=== PATIENT | female | born 1965 | race Caucasian/White ===

== ENCOUNTER 2018-09-29 12:11 | Inpatient (IN) | payer MEDICAID ==
[~2018-09-29] VITALS: Ht 157.5 cm; Wt 63.0 kg
--- NOTE | 2018-09-29 12:30 | NUR ---
PT IN ER LOBBY
[2018-09-29 12:35] VITALS: BP 111/72
--- NOTE | 2018-09-29 12:52 | NUR ---
Patient ambulated to bed 9.
[2018-09-29] MEDS ORDERED: METF1000 PO (12:59)
--- NOTE | 2018-09-29 13:00 | NUR ---
52 Y FEMALE BIB SON C/O VAGINAL ACHING PAIN 910 X 3 DAYS. PT STATES IT HURTS TO URINATE, NO VAGINAL DISCHARGE. -ITCHING. -N/V. BS 474. BED IS DOWN, LOCKED, BED RAIL X 1, ERMD NOTIFIED. HX-DM LOW BP, HIGH CHOL RX- METFORMIN
--- NOTE | 2018-09-29 14:14 | NUR ---
ER MD DR BAHENA AT BEDSIDE
--- NOTE | 2018-09-29 14:20 | NUR ---
Female Double Backer MELI MCKAY accompanied female patient for Pelvic Exam.
--- NOTE | 2018-09-29 14:38 | NUR ---
US AT BEDSIDE.
[2018-09-29 14:53] LABS: APPEARANCE,URINE CLEAR (CLEAR); BILIRUBIN,URINE NEGATIVE (NEGATIVE); BLOOD, URINE NEGATIVE (NEGATIVE); COLOR,URINE YELLOW (YELLOW); LEUKOCYTE ESTERASE ,URINE NEGATIVE (NEGATIVE); NITRITE, URINE NEGATIVE (NEGATIVE); UGLUCOSE 3+ (NEGATIVE)
--- NOTE | 2018-09-29 16:17 | NUR ---
GYNOCOLOGIST DR CHOU ON THE PHONE WITH DR BAHENA
[2018-09-29 16:48] LABS: BASOPHILS % (AUTO) 0.4 % (0.0-2.0); EOSINOPHILS # (AUTO) 0.1 K/uL (0-0.4); EOSINOPHILS % (AUTO) 1.1 % (0.0-4.0); HEMATOCRIT 38.5 % (36-48); HEMOGLOBIN 13.1 g/dL (12.0-16.0); LYMPHOCYTES # (AUTO) 2.2 K/uL (2.5-16.5); LYMPHOCYTES % (AUTO) 18.2 % (20.5-51.1); MEAN CORPUSCULAR HEMOGLOBIN 29 pg (27-31); MEAN CORPUSCULAR HGB CONC 34 g/dL (33-37); MEAN CORPUSCULAR VOLUME 84.7 fL (80-94); MONOCYTES # (AUTO) 0.7 K/uL (0.8-1.0); MONOCYTES % (AUTO) 5.9 % (1.7-9.3); NEUTROPHILS # (AUTO) 8.8 K/uL (1.8-7.7); NEUTROPHILS % (AUTO) 74.4 % (42.2-75.2); PLATELET COUNT (AUTO) 211 K/uL (140-450); RED BLOOD CELL COUNT(AUTO) 4.55 MIL/uL (4.20-5.40); RED CELL DISTRIBUTION WIDTH 12.8 % (11.6-13.7); WHITE BLOOD COUNT (AUTO) 11.8 K/uL (4.8-10.8)
[2018-09-29] MEDS ORDERED: LIDOCAINE MPF 1% 5mL VIAL ONE (16:53)
[2018-09-29 17:16] LABS: ANION GAP 13.8 (8-16); CARBON DIOXIDE 25.2 mmol/L (21-32); CREATININE 0.7 mg/dL (0.6-1.3)
[2018-09-29] MEDS ORDERED: LIDOCAINE 1% 500 MG/50 ML VIAL INJ SCH (17:25)
[2018-09-29] MEDS ORDERED: INSULIN REGULAR, HUMAN 100 UNIT/ML VIAL SUBQ ONE (17:25)
--- NOTE | 2018-09-29 17:59 | NUR ---
IND COMPLETED BY DR GARZA, Female Box Tender accompanied female patient for IND.
[2018-09-29] MEDS ORDERED: NACL 0.9% 1,000 ML IV SCH (18:58)
[2018-09-29] MEDS ORDERED: ONDANSETRON 4 MG/2 ML VIAL IM/IVP PRN (19:00)
[2018-09-29] MEDS ORDERED: KETOROLAC 15 MG/ML VIAL IVP PRN (19:00)
[2018-09-29] MEDS ORDERED: ACETAMINOPHEN 325 MG TAB PO PRN (19:00)
[2018-09-29] MEDS ORDERED: DEXTROSE 50% 50 ML SYR IVP PRN (19:00)
[2018-09-29] MEDS ORDERED: MORPHINE SULFATE 4 MG/ML SYR IVP ONE (19:20)
[2018-09-29 19:51] LABS: BARBITURATE, URINE NEG. ng/ml (NEG <=200); BENZODIAZEPINE, URINE NEG. ng/mL (NEG <=200); CANNABINOID, URINE NEG. ng/mL (NEG <=50); COCAINE, URINE NEG. ng/mL (NEG <=300); OPIATE, URINE NEG. ng/mL (NEG <=2000); PHENCYCLIDINE SCREEN,URINE NEG. ng/mL (NEG <=25)
--- NOTE | 2018-09-29 19:55 | NUR ---
Patient will be admitted to care of ROLO. Admited to [facility]. Will go to room 108B. Belongings list completed. Report to BERNICE MCKAY.
--- NOTE | 2018-09-29 19:55 | NUR ---
ADMITTED A 52 Y/O FEMALE FROM WITH CHIEF COMPLAINT OF VAGINAL PAIN VIA GURNEY. PATIENT TRANSFERRED TO BED WITH STAND BY ASSIST.RESPIRATION EVEN AND UNLABORED IN ROOM AIR. DENIES PAIN AT THIS TIME.DISCUSSED PLAN OF CARE. PATIENT ABLE TO VERBALIZED HER NEEDS AND FOLLOW COMMANDS. SKIN INTACT. MRSA NASAL SWAB DONE.PERSONAL BELONGINGS AT BEDSIDE. ADMISSION CARE DONE AND CARRY OUT ORDERS. BED IN LOW LOCKED POSITION. EXPLAINED TO USE CALL LIGHT FOR ASSISTANCE. CALL LIGHT WITHIN REACH. ALL NEEDS ATTENDED. WILL CONTINUE TO MONITOR.
[2018-09-29 19:57] LABS: MAGNESIUM 1.9 mg/dL (1.8-2.4); PHOSPHORUS 3.6 mg/dL (2.5-4.9); THYROID STIMULATING HORMONE 0.9 uIU/mL (0.34-3.74)
[2018-09-29 20:28] LABS: PROTHROMBIN TIME 8.8 secs (10.8-13.4)
[2018-09-29] MEDS ORDERED: cefTRIAXone 1,000 MG VIAL ONE (20:31)
--- NOTE | 2018-09-29 21:00 | NUR ---
DR LAND CALLED TO CHECK ON HIS CONSULT, ASKE ME TO CHECK THE CYST AND MEASURE IT, AND STATED WILL CALL BACK IN 5 MIN.
--- NOTE | 2018-09-29 21:00 | NUR ---
BS TAKEN 403. NOTIFIED DR. CASTANEDA ORDERED INSULIN 10 UNITS. EXPLAINED PATIENT ABOUT NPO POST MIDNIGHT AND VERBALIZED UNDERSTANDING. WILL CONTINUE TO MONITOR
--- NOTE | 2018-09-29 21:10 | NUR ---
DR LAND CALLED BACK GIVE HIM THE MEASUREMENT OF THE CYST AND HOW IT LOOKS LIKE. SUGGESTED FOR PATIENT TO TAKE A SHOWER TONIGHT AND TOMORROW MORNING AND ZITS BATH WOULD BE GOOD, ALSO IV ABX. INFORMED DR CASTANEDA.
[2018-09-29] MEDS: BLOOD GLUCOSE MONITORING 1 DEV DEV FS SCH (21:17)
[2018-09-29] MEDS: INSULIN LISPRO SLIDING SCALE 100 UNITS/ML VIAL SUBQ PRN (21:24)
[2018-09-29] MEDS: DOCUSATE SODIUM 100 MG GELCAP PO SCH (21:28)
[2018-09-29] MEDS: metFORMIN 500 MG TAB PO SCH (21:28)
[2018-09-30] MEDS ORDERED: NACL 0.45% 1,000 ML IV SCH
--- NOTE | 2018-09-30 | NUR ---
CHECKED PATIENT RESTING IN BED. PATIENT REFUSED TO TAKE SHOWER PER MD"S ORDERED. PATIENT REQUESTED TO TAKE SHOWER IN THE MORNING.
[2018-09-30] MEDS: HYDROcodone/APAP 5/325 MG 1 TAB TAB PO PRN ×3 (00:12→22:09)
--- NOTE | 2018-09-30 02:00 | NUR ---
CHECKED PATIENT RESTING. SEEN CHEST RISE AND FALL. NO S/S OF DISTRESS NOTED. ALL NEEDS ATTENDED.
[2018-09-30 04:00] VITALS: BP 109/69
--- NOTE | 2018-09-30 04:00 | NUR ---
SEEN PATIENT RESTING IN BED. NO S/S OF DISTRESS NOTED. CALL LIGHT WITHIN REACH.
[2018-09-30] MEDS: BLOOD GLUCOSE MONITORING 1 DEV DEV FS SCH ×4 (05:35→20:27)
[2018-09-30] MEDS: POTASSIUM CHL 20 MEQ/D5-1/2NS 1,000 ML IV SCH ×3 (05:57→19:25)
[2018-09-30] MEDS: INSULIN LISPRO SLIDING SCALE 100 UNITS/ML VIAL SUBQ PRN ×4 (06:11→20:30)
--- NOTE | 2018-09-30 07:20 | NUR ---
Received bedside report from pm nurse Oro. Pt awake, verbal, no signs of distress, FLACC 0. Call light within reach.
[2018-09-30 08:00] VITALS: BP 105/69
[2018-09-30] MEDS: LACTOBACILLUS RHAMNOSUS GG 1 EACH CAP PO SCH (08:01)
[2018-09-30] MEDS: metFORMIN 500 MG TAB PO SCH ×2 (08:01→20:27)
[2018-09-30] MEDS: DOCUSATE SODIUM 100 MG GELCAP PO SCH ×2 (08:01→20:27)
[2018-09-30 08:02] LABS: BASOPHILS % (AUTO) 0.3 % (0.0-2.0); EOSINOPHILS # (AUTO) 0.2 K/uL (0-0.4); EOSINOPHILS % (AUTO) 1.5 % (0.0-4.0); HEMATOCRIT 39.4 % (36-48); HEMOGLOBIN 13.3 g/dL (12.0-16.0); LYMPHOCYTES # (AUTO) 1.4 K/uL (2.5-16.5); LYMPHOCYTES % (AUTO) 13.6 % (20.5-51.1); MEAN CORPUSCULAR HEMOGLOBIN 29 pg (27-31); MEAN CORPUSCULAR HGB CONC 34 g/dL (33-37); MEAN CORPUSCULAR VOLUME 85.3 fL (80-94); MONOCYTES # (AUTO) 0.6 K/uL (0.8-1.0); MONOCYTES % (AUTO) 5.8 % (1.7-9.3); NEUTROPHILS # (AUTO) 8.4 K/uL (1.8-7.7); NEUTROPHILS % (AUTO) 78.8 % (42.2-75.2); PLATELET COUNT (AUTO) 211 K/uL (140-450); RED BLOOD CELL COUNT(AUTO) 4.61 MIL/uL (4.20-5.40); RED CELL DISTRIBUTION WIDTH 12.9 % (11.6-13.7); WHITE BLOOD COUNT (AUTO) 10.6 K/uL (4.8-10.8)
[2018-09-30 08:27] LABS: ANION GAP 13.7 (8-16); CREATININE 0.5 mg/dL (0.6-1.3); POTASSIUM 3.7 mmol/L (3.5-5.1)
[2018-09-30 08:31] LABS: CHOL/HDL RATIO 4.2 (1-4.5); MAGNESIUM 1.7 mg/dL (1.8-2.4); PHOSPHORUS 2.9 mg/dL (2.5-4.9)
--- NOTE | 2018-09-30 09:20 | NUR ---
IVF held at this time. IV site covered with plastic. Pt assisted to shower room. Pt able to return demonstrate proper use of pull string to call staff. Privacy provided. Pt able to shower independently.
--- NOTE | 2018-09-30 09:40 | NUR ---
Pt amb back to room post shower with steady gait. Resumed IVF to left forearm IV. No c/o discomfort at this time. Call light within reach.
--- NOTE | 2018-09-30 13:30 | NUR ---
Assisted Dr. Albarado at bedside to assess pt. Dr Alvarado in room as well.
--- NOTE | 2018-09-30 13:40 | NUR ---
Squirt bottle provided at bedside. Per Dr Albarado encourage pt of ff: use squirt bottle with warm water after toileting, avoid using pantiliners, use cotton panties only, & wipe perineum from front to back. Pt teaching provided. Squirt bottle at bedside. Pt verbalized understanding & agree with plan of care.
[2018-09-30] MEDS ORDERED: MORPHINE SULFATE 2 MG/ML SYR IVP SCH (14:30)
[2018-09-30] MEDS ORDERED: MAGNESIUM OXIDE 400 MG TAB PO SCH (14:30)
[2018-09-30] MEDS: LEVOFLOXACIN 750 MG/D5W PREMIX 150 ML IV SCH (14:57)
[2018-09-30 16:00] VITALS: BP 118/69
--- NOTE | 2018-09-30 16:43 | NUR ---
Zofran admin: Pt vomited in toilet x1 small amt of previously ingested food. Pt states she feels nauseous after Morphine admin. Zofran administered. Hot tea with lemon provided per pt request for comfort. Emesis bag provided. Call light within reach.
--- NOTE | 2018-09-30 17:43 | NUR ---
Zofran reassessment: No c/o nausea at this time. No further episodes of vomiting.
--- NOTE | 2018-09-30 19:25 | NUR ---
Bedside report given to pm nurse Hilary. Pt in bed, awake, no signs of distress.
--- NOTE | 2018-09-30 19:26 | NUR ---
RECEIVED REPORT FROM DAY SHIFT NURSE DEV-RN AT BEDSIDE. PT AOX4-BURKINAN SPEAKING, ON ROOM AIR WITH LEFT FA #22G. VAGINAL CYST WITH SWELLING AND PAIN. DISCUSSED PLAN OF CARE AND PT VERBALIZED UNDERSTANDING. NO S/S OF RESPIRATORY DISTRESS OR DISCOMFORT NOTED AT THIS TIME. BED IN LOWEST POSITION, BED BREAKS ON, BOTH SIDE RAILS UP. BEDSIDE TABLE AND CALL LIGHT ARE WITHIN REACH. WILL CONTINUE TO MONITOR.
[2018-09-30 20:00] VITALS: BP 114/55
--- NOTE | 2018-09-30 20:00 | NUR ---
VITAL SIGNS TAKEN AND TOLERATED WELL. BLOOD GLUCOSE 290- WILL ADMINISTER INSULIN COVERAGE. NO S/S OF RESPIRATORY DISTRESS OR DISCOMFORT NOTED AT THIS TIME. WILL CONTINUE TO MONITOR.
--- NOTE | 2018-09-30 20:30 | NUR ---
SCHEDULED MEDICATION AND INSULIN COVERAGE GIVEN AND TOLERATED WELL. NO S/S OF RESPIRATORY DISTRESS OR DISCOMFORT NOTED AT THIS TIME. WILL CONTINUE TO MONITOR.
[2018-09-30] MEDS: NACL 0.9% 1,000 ML IV SCH (20:50)
--- NOTE | 2018-09-30 22:09 | NUR ---
PT C/O PAIN 6/10 ON VAGINAL CYST. NORCO GIVEN AND TOLERATED WELL. NO S/S OF RESPIRATORY DISTRESS OR DISCOMFORT NOTED AT THIS TIME. WILL CONTINUE TO MONITOR.
[2018-10-01] VITALS: BP 94/51
--- NOTE | 2018-10-01 | NUR ---
VITAL SIGNS TAKEN AND TOLERATED WELL. NO S/S OF RESPIRATORY DISTRESS OR DISCOMFORT NOTED AT THIS TIME. WILL CONTINUE TO MONITOR.
--- NOTE | 2018-10-01 02:00 | NUR ---
PT SLEEPING IN BED. NO S/S OF RESPIRATORY DISTRESS OR DISCOMFORT NOTED AT THIS TIME. WILL CONTINUE TO MONITOR.
--- NOTE | 2018-10-01 04:00 | NUR ---
PT CONTINUES TO SLEEP IN BED. NO S/S OF RESPIRATORY DISTRESS OR DISCOMFORT NOTED AT THIS TIME. WILL CONTINUE TO MONITOR.
--- NOTE | 2018-10-01 06:00 | NUR ---
BLOOD GLUCOSE 272- WILL ADMINISTER INSULIN COVERAGE. NO S/S OF RESPIRATORY DISTRESS OR DISCOMFORT NOTED AT THIS TIME. WILL CONTINUE TO MONITOR.
[2018-10-01] MEDS: BLOOD GLUCOSE MONITORING 1 DEV DEV FS SCH ×2 (06:21→11:35)
[2018-10-01] MEDS: INSULIN LISPRO SLIDING SCALE 100 UNITS/ML VIAL SUBQ PRN ×2 (06:24→11:38)
--- NOTE | 2018-10-01 06:25 | NUR ---
INSULIN COVERAGE GIVEN AND TOLERATED WELL. NO S/S OF RESPIRATORY DISTRESS OR DISCOMFORT NOTED AT THIS TIME. WILL CONTINUE TO MONITOR.
[2018-10-01 06:43] LABS: BASOPHILS % (AUTO) 0.2 % (0.0-2.0); EOSINOPHILS # (AUTO) 0.2 K/uL (0-0.4); EOSINOPHILS % (AUTO) 1.9 % (0.0-4.0); HEMOGLOBIN 12.8 g/dL (12.0-16.0); LYMPHOCYTES # (AUTO) 1.8 K/uL (2.5-16.5); LYMPHOCYTES % (AUTO) 17.8 % (20.5-51.1); MEAN CORPUSCULAR HEMOGLOBIN 29 pg (27-31); MEAN CORPUSCULAR HGB CONC 34 g/dL (33-37); MEAN CORPUSCULAR VOLUME 85.8 fL (80-94); MONOCYTES # (AUTO) 0.7 K/uL (0.8-1.0); MONOCYTES % (AUTO) 6.6 % (1.7-9.3); NEUTROPHILS # (AUTO) 7.5 K/uL (1.8-7.7); NEUTROPHILS % (AUTO) 73.5 % (42.2-75.2); PLATELET COUNT (AUTO) 218 K/uL (140-450); RED BLOOD CELL COUNT(AUTO) 4.44 MIL/uL (4.20-5.40); RED CELL DISTRIBUTION WIDTH 12.7 % (11.6-13.7); WHITE BLOOD COUNT (AUTO) 10.2 K/uL (4.8-10.8)
[2018-10-01 06:44] LABS: ANION GAP 11.4 (8-16); CARBON DIOXIDE 26.4 mmol/L (21-32); CREATININE 0.5 mg/dL (0.6-1.3); POTASSIUM 3.8 mmol/L (3.5-5.1)
[2018-10-01 06:46] LABS: MAGNESIUM 1.6 mg/dL (1.8-2.4); PHOSPHORUS 3.1 mg/dL (2.5-4.9)
--- NOTE | 2018-10-01 07:09 | NUR ---
ENDORSED PT CARE TO DAY SHIFT NURSE EARLE FOR CONTINUITY OF CARE.
--- NOTE | 2018-10-01 07:14 | NUR ---
RECEIVED PT FROM NETSUITE DEVELOPER NURSEPEYMAN, PT IS AWAKE AND LYING ON THE BED, WITH SIDE RAILS UP AND CALL LIGHT WITHIN REACH, PT HAS AN IV LINE ON THE LEFT FA G.22 WITH NS AT 60ML/HR, INFUSING, INTACT, PT DENIES PAIN AND NOT A FALL RISK. NO SIGN OF DISTRESS NOTED AND WILL MONITOR PT.
--- NOTE | 2018-10-01 07:50 | NUR ---
PT IS AWAKE AND VITAL SIGNS TAKEN AND IS WITHIN NORMAL LIMIT. PT DENIES PAIN AND NO SIGN OF DISTRESS NOTED. WILL CONTINUE TO MONITOR PT.
[2018-10-01 08:00] VITALS: BP 109/67
[2018-10-01] MEDS: LACTOBACILLUS RHAMNOSUS GG 1 EACH CAP PO SCH (08:14)
[2018-10-01] MEDS: metFORMIN 500 MG TAB PO SCH (08:14)
[2018-10-01] MEDS: DOCUSATE SODIUM 100 MG GELCAP PO SCH (08:14)
--- NOTE | 2018-10-01 08:15 | NUR ---
PT IS AWAKE AND BREAKFAST WAS SERVED, PT IS EATING, ORAL MEDICATIONS WERE GIVEN AND PT TOLERATED IT, NO SIGN OF DISTRESS NOTED AND WILL CONTINUE TO MONITOR PT.
--- NOTE | 2018-10-01 08:23 | NUR ---
PATIENT HAS BEEN SCREENED AND CATEGORIZED MODERATE NUTRITION RISK. PATIENT WILL BE SEEN WITHIN 3-5 DAYS OF ADMISSION. 10/02/18[address]
[2018-10-01] MEDS ORDERED: LEVO750T2 PO (10:57)
[2018-10-01] MEDS ORDERED: CLIN300C2 PO (10:57)
[2018-10-01] MEDS ORDERED: LACT1.4C PO (10:57)
[2018-10-01] MEDS ORDERED: MAGNESIUM OXIDE 400 MG TAB PO SCH (11:30)
--- NOTE | 2018-10-01 11:38 | NUR ---
PT IS AWAKE AND LYING ON THE BED, BLOOD GLUCOSE CHECK DONE AND RESULT IS 2554, 4 UNITS OF HUMALOG WAS GIVEN ON THE RT UA, MAGNESIUM OXIDE WAS GIVEN FOR THE VALUE OF 1.6, PT TOLERATED ALL THE MEDICATIONS AND NO SIGN OF DISTRESS NOTED. WILL MONITOR PT.
[2018-10-01] MEDS: NACL 0.9% 1,000 ML IV SCH (13:25)
[2018-10-01] MEDS: LEVOFLOXACIN 750 MG/D5W PREMIX 150 ML IV SCH (15:00)
--- NOTE | 2018-10-01 15:50 | NUR ---
DISCHARGED PT VIA WHEELCHAIR AND WAS BROUGHT AND ACCOMPANIED TO HER CAR, PT WILL DRIVE BY HERSELF, VITAL SIGNS TAKEN AND BP IS 105/58, PULSE IS 89, TEMPERATURE IS 98, O2 SATURATION IS 98% AND DENIES PAIN, PT IS STABLE AT THIS TIME. DISCHARGED TEACHING AND INSTRUCTIONS GIVEN AND PT VERBALIZED UNDERSTANDING. IV LINE AND ARM BAND REMOVED.
[2018-10-02 06:16] LABS: CHLAMYDIA TRACHOMATIS AMP DNA Negative (Negative)
== END 2018-10-01 15:50 | disposition home or self-care (01) | DRG 532 ==
LOC: MED 12:11 → MTU 18:58
PROVIDERS: ADMIT General Practice; ATTEND General Practice
DX: N90.7 Vulvar cyst (principal); E11.628 Type 2 diabetes mellitus with other skin complications; E87.8 Other disorders of electrolyte and fluid balance, not elsewhere classified; E11.65 Type 2 diabetes mellitus with hyperglycemia; R82.4 Acetonuria; E87.1 Hypo-osmolality and hyponatremia; Z79.899 Other long term (current) drug therapy; Z88.0 Allergy status to penicillin; E78.00 Pure hypercholesterolemia, unspecified
CPT/HCPCS: 10160; 36415; 71045; 76856; 80048; 80305; 81003; 81025; 82948; 83036; 83735; 83880; 84100; 84443; 85025; 85610; 85730; 87081; 87491; 96372; 99285; J0696; J1815; J1956; J2001; J2270; J2405; J7030; J7060; Q0092

== ENCOUNTER 2022-06-14 20:14 | Emergency (ER) | payer SELFPAY ==
[~2022-06-14] VITALS: Ht 157.5 cm; Wt 48.1 kg
[~2022-06-14 20:14] MED LIST: CLIN300C2 PO; LACT1.4C PO; LEVO750T2 PO; METF-1274 PO
[2022-06-14 20:44] VITALS: BP 130/84
--- NOTE | 2022-06-14 20:55 | NUR ---
Patient taken to bed 9.
--- NOTE | 2022-06-14 20:55 | NUR ---
PT TO BED #9
[2022-06-14] MEDS ORDERED: ALUMINUM HYD/MAG/SIMETHICONE 30 ML UDC PO ONE (21:00)
[2022-06-14] MEDS ORDERED: NACL 0.9% 1,000 ML IV ONE ×2 (21:00→21:45)
[2022-06-14] MEDS ORDERED: ONDANSETRON 4 MG/2 ML VIAL IVP ONE (21:00)
[2022-06-14] MEDS ORDERED: FAMOTIDINE 20 MG/2 ML VIAL IVP ONE (21:00)
[2022-06-14 21:20] LABS: APPEARANCE,URINE CLEAR (CLEAR); BILIRUBIN,URINE NEGATIVE (NEGATIVE); BLOOD, URINE NEGATIVE (NEGATIVE); COLOR,URINE YELLOW (YELLOW); LEUKOCYTE ESTERASE ,URINE NEGATIVE (NEGATIVE); NITRITE, URINE NEGATIVE (NEGATIVE); UGLUCOSE 3+ (NEGATIVE)
[2022-06-14 21:20] LABS: BASOPHILS # (AUTO) 0.1 K/uL (0.00-0.22); BASOPHILS % (AUTO) 0.7 % (0.0-2.0); EOSINOPHILS # (AUTO) 0.1 K/uL (0-0.4); EOSINOPHILS % (AUTO) 1.7 % (0.0-4.0); HEMATOCRIT 47.5 % (36-48); HEMOGLOBIN 15.9 g/dL (12.0-16.0); MEAN CORPUSCULAR HEMOGLOBIN 30 pg (27-31); MEAN CORPUSCULAR HGB CONC 34 g/dL (33-37); MEAN CORPUSCULAR VOLUME 89.4 fL (80-94); MONOCYTES # (AUTO) 0.5 K/uL (0.8-1.0); NEUTROPHILS # (AUTO) 4.3 K/uL (1.8-7.7); NEUTROPHILS % (AUTO) 53.6 % (42.2-75.2); PLATELET COUNT (AUTO) 309 K/uL (140-450); RED BLOOD CELL COUNT(AUTO) 5.31 MIL/uL (4.20-5.40); RED CELL DISTRIBUTION WIDTH 12.6 % (11.6-13.7)
[2022-06-14 21:40] LABS: ALBUMIN 4.5 g/dL (3.4-5.0); ANION GAP 17.1 (8-16); CARBON DIOXIDE 28.2 mmol/L (21-32); POTASSIUM 4.3 mmol/L (3.5-5.1); TOTAL BILIRUBIN 0.5 mg/dL (0.0-1.0)
[2022-06-14] MEDS ORDERED: INSULIN REGULAR, HUMAN 100 UNIT/ML VIAL IVP ONE (21:45)
--- NOTE | 2022-06-14 23:15 | NUR ---
RONAN SWAB OBTAINED AND TO LAB
[2022-06-15] MEDS ORDERED: ACET-10509 PO (00:18)
[2022-06-15 00:25] VITALS: BP 128/78
--- NOTE | 2022-06-15 00:25 | NUR ---
Patient discharged with v/s stable. Written and verbal after care instructions given and explained. Patient verbalized understanding. Ambulatory with steady gait. All questions addressed prior to discharge. Advised to follow up with PMD.
== END 2022-06-15 00:25 | disposition home or self-care (01) ==
LOC: MED 20:14
DX: R10.11 Right upper quadrant pain (principal); Z20.822 Contact with and (suspected) exposure to COVID-19; E11.65 Type 2 diabetes mellitus with hyperglycemia; Z79.84 Long term (current) use of oral hypoglycemic drugs; Z88.0 Allergy status to penicillin; Z98.890 Other specified postprocedural states
CPT/HCPCS: 36415; 76705; 80053; 81003; 83690; 85025; 87426; 96361; 96374; 96375; 99284; J1815; J2405; J3490; J7030; Q0092